=== PATIENT | male | born 2000 ===

== ENCOUNTER 2022-02-21 05:22 | Inpatient (IN) | payer OTHER ==
[2022-02-21] MEDS ORDERED: Ondansetron PF 4 MG/2 ML Vial ONE ×3 (05:36→10:11)
[2022-02-21 05:52] LABS: #Basophils 0.1 thou/uL (0.0-0.2); #Eosinphils 0.2 thou/uL (0.0-0.7); #Lymphocytes 5.2 thou/uL (1.20-3.40); #Monocytes 0.8 thou/uL (0.11-0.59); #Neutrophils 6.5 thou/uL (1.40-6.50); %Basophils 0.8 % (0.0-1.0); %Eosinophils 1.9 % (0.0-10.0); %Lymphocytes 40.3 % (21.0-51.0); %Monocytes 6.5 % (0.0-10.0); %Neutrophils 50.5 % (42.0-75.0); Hemoglobin 13.7 g/dL (14.0-18.0); Mean Corpuscular Hemoglobin 29.2 pg (27.0-31.0); Mean Corpuscular Volume 88.4 fL (78.0-98.0); Mean Platelet Volume 8.7 fL (7.4-10.4); Platelet Count 264 thou/uL (130-400); RBC Distribution Width 13.3 % (11.5-14.5); Red Blood Cell (RBC) Count 4.71 mill/uL (4.70-6.10); White Blood Cell (WBC) Count 12.8 thou/uL (4.8-10.8)
[2022-02-21 06:08] LABS: ALT (SGPT) 126 U/L (8-55); AST (SGOT) 129 U/L (5-34); Acetaminophen Less than 10.0 mcg/mL (10.0-30.0); Alcohol 116 mg/dL (Less than 10); Alkaline Phosphatase 51 U/L (40-110); Anion Gap 16 mmol/L (10-20); BUN (Urea Nitrogen) 10 mg/dL (8.9-20.6); Bilirubin, Total 0.9 mg/dL (0.2-1.2); Calc. Creatinine Clearance 0 mL/min (70-130); Calcium 8.6 mg/dL (7.8-10.44); Carbon Dioxide 18 mmol/L (22-29); Chloride 109 mmol/L (98-107); Globulin 2.3 g/dL (2.4-3.5); Glucose 179 mg/dL (70-105); Potassium 3.3 mmol/L (3.5-5.1); Protein, Total 6.3 g/dL (6.0-8.3); Salicylate Less than 8.0 mg/dL (15.0-30.0); Sodium 140 mmol/L (136-145)
[2022-02-21] MEDS ORDERED: Boostrix 0.5 ML (Tdap) VIAL ONE (06:11)
[2022-02-21] MEDS ORDERED: CEFAZOLIN 2 GM VIAL ONE (06:11)
[2022-02-21] MEDS ORDERED: Lidocaine 1% PF 5 ML VIAL ONE ×2 (06:46→10:11)
[2022-02-21] MEDS ORDERED: Dextrose 5% in Water 1,000 ML IV PRN (07:32)
[2022-02-21] MEDS ORDERED: Dextrose 50% Abboject 50 ML SYRINGE SLOW IVP PRN (07:32)
[2022-02-21] MEDS ORDERED: hydrALAZINE 20 MG/ML VIAL SLOW IVP PRN (07:32)
[2022-02-21 07:57] LABS: Bacteria/HPF None Seen HPF (None Seen); Bilirubin Negative (Negative); Blood, Urine 2+ (Negative); Clarity Clear (Clear); Glucose, Urine (Dipstick) 30 mg/dL (Negative); Ketone, Urine Negative (Negative); Leukocyte Negative Leu/uL (Negative); Nitrite Negative (Negative); Protein, Urine (Dipstick) Negative (Neg-Trace); RBC/HPF None Seen HPF (0-3); Specific Gravity, Urine 1.042 (1.002-1.036); Squamous Epithelial None Seen HPF (0-3); Urobilinogen Normal mg/dL (Less than 2)
[2022-02-21 08:02] LABS: Amphetamine Not Detected (NotDetected); Barbiturates Screen Not Detected (NotDetected); Benzodiazepine Screen Not Detected (NotDetected); Cocaine Metabolite Screen Not Detected (NotDetected); Methadone Not Detected (NotDetected); Methamphetamine Not Detected (NotDetected); Opiate Screen Not Detected (NotDetected); Oxycodone Screen Not Detected (NotDetected); Phencyclidine (PCP) Not Detected (NotDetected); THC/Cannabinoid Screen Detected (NotDetected); Tricyclic Screen Not Detected (NotDetected)
[2022-02-21 08:26] LABS: INR-International Normal Ratio 1.1; Prothrombin Time 14.5 sec (12.0-14.7)
[2022-02-21 08:27] LABS: PTT 26.6 sec (22.9-36.1)
[2022-02-21] MEDS ORDERED: Midazolam HCl 2 mg/2 ml Vial ONE (09:06)
[2022-02-21] MEDS ORDERED: fentaNYL Citrate/PF 100 MCG/2 ML SYRINGE ONE (09:07)
[2022-02-21] MEDS ORDERED: Lidocaine 2% Jelly 5 ML TUBE ONE (09:07)
[2022-02-21] MEDS ORDERED: AFRIN NASAL MIST 15 ML BOT ONE (09:15)
[2022-02-21] MEDS ORDERED: Lidocaine 1% w/Epinephrine 1:100K 20 ML VIAL ONE (09:44)
[2022-02-21] MEDS ORDERED: Bupivacaine 0.25% 10 ML VIAL ONE (09:44)
[2022-02-21] MEDS ORDERED: Bupivacaine PF 0.5% 30 ML VIAL ONE (09:44)
[2022-02-21] MEDS ORDERED: Chlorhexidine Gluconate 15 ML UDCUP SSP ONE (09:55)
[2022-02-21] MEDS ORDERED: Clindamycin/D5W 900 mg/50 ml Premix Bag ONE (10:04)
[2022-02-21] MEDS ORDERED: Dexamethasone 20 MG/5 ML VIAL ONE (10:11)
[2022-02-21] MEDS ORDERED: PHENYLEPHRINE-NS 100 MCG/ML 10 ML SYRINGE ONE ×2 (10:11→11:27)
[2022-02-21] MEDS ORDERED: Rocuronium Bromide 10 MG/ML (10ML VIAL) ONE (10:11)
[2022-02-21] MEDS ORDERED: PROPOFOL 200 MG/20 ML VIAL ONE (10:11)
[2022-02-21] MEDS ORDERED: Glycopyrrolate 0.2 MG/ML 5 ML SYRINGE ONE (10:11)
[2022-02-21] MEDS ORDERED: Iopamidol 370 76% 100 ML VIAL ONE (10:34)
[2022-02-21] MEDS ORDERED: Promethazine HCl 25 MG/ML VIAL ONE (11:03)
[2022-02-21] MEDS ORDERED: Hydrocortisone 1% Cream 30 GM TUBE ONE (11:17)
[2022-02-21] MEDS ORDERED: SUGAMMADEX SODIUM 200 MG/2 ML VIAL ONE (11:27)
[2022-02-21] MEDS ORDERED: Phenylephrine 10 MG/ML VIAL ONE (11:27)
[2022-02-21] MEDS ORDERED: Meperidine HCl/PF 25 MG/ML VIAL ONE (12:10)
[2022-02-21] MEDS: Sodium Chloride 0.9% 1,000 ML IV SCH ×2 (15:57→16:08)
[2022-02-21] MEDS: Dexamethasone 4 mg/ml Vial SLOW IVP SCH ×2 (15:57→16:04)
[2022-02-21] MEDS: Acetaminophen 650 MG/20.3 ML UDCUP PO SCH ×3 (15:57→21:00)
[2022-02-21] MEDS: Famotidine/PF 20 mg/2ml Vial SLOW IVP SCH ×2 (15:57→19:56)
[2022-02-21] MEDS: Morphine 2 MG/ML VIAL SLOW IVP PRN ×3 (16:11→21:48)
[2022-02-21] MEDS: Ondansetron PF 4 MG/2 ML Vial IVP PRN ×2 (16:19→21:50)
[2022-02-21 16:28] VITALS: BMI 23.6
[2022-02-21] MEDS: Clindamycin/D5W 900 MG in Premix Bag 1 BAG IVPB SCH (17:45)
[2022-02-21] MEDS ORDERED: Potassium Phosphate 30 MMOL in Sodium Chloride 0.9% 250 ML 250 ML IVPB SCH (18:00)
[2022-02-21] MEDS: Acetaminophen W/ Codeine 5 ML UDCUP PO PRN (18:02)
[2022-02-21] MEDS: Ciprofloxacin HCL/Dexameth Otic Drops 7.5 ml Bottle L EAR SCH (20:01)
[2022-02-21] MEDS ORDERED: Promethazine HCl 25 MG/ML VIAL IM PRN (20:06)
[2022-02-21] MEDS: Scopolamine 1.5 mg/72 hour Patch TD SCH (21:01)
[2022-02-21] MEDS: Chlorhexidine Gluconate 15 ML UDCUP SSP SCH (21:02)
[2022-02-22] MEDS: Acetaminophen W/ Codeine 5 ML UDCUP PO PRN ×3 (00:16→11:00)
[2022-02-22] MEDS: Morphine 2 MG/ML VIAL SLOW IVP PRN ×2 (00:16→04:16)
[2022-02-22] MEDS: Dexamethasone 4 mg/ml Vial SLOW IVP SCH (01:36)
[2022-02-22] MEDS: Acetaminophen 650 MG/20.3 ML UDCUP PO SCH ×4 (03:19→20:16)
[2022-02-22] MEDS: Clindamycin/D5W 900 MG in Premix Bag 1 BAG IVPB SCH (03:21)
[2022-02-22] MEDS: Sodium Chloride 0.9% 1,000 ML IV SCH (03:23)
[2022-02-22 05:54] LABS: INR-International Normal Ratio 1.2; Prothrombin Time 14.9 sec (12.0-14.7)
[2022-02-22 06:14] LABS: Anion Gap 11 mmol/L (10-20); BUN (Urea Nitrogen) 8 mg/dL (8.9-20.6); Calc. Creatinine Clearance 162 mL/min (70-130); Calcium 8.5 mg/dL (7.8-10.44); Carbon Dioxide 27 mmol/L (22-29); Chloride 103 mmol/L (98-107); Glucose 162 mg/dL (70-105); Magnesium 1.6 mg/dL (1.6-2.6); Potassium 3.5 mmol/L (3.5-5.1); Sodium 137 mmol/L (136-145)
[2022-02-22 06:32] LABS: Band 17 % (5-11); Hemoglobin 12.3 g/dL (14.0-18.0); Lymphocytes 3 % (21-51); MDiff Complete? YES; Mean Corpuscular HGB CONC 33.2 g/dL (32.0-36.0); Mean Corpuscular Hemoglobin 29.6 pg (27.0-31.0); Mean Corpuscular Volume 89.1 fL (78.0-98.0); Mean Platelet Volume 9.2 fL (7.4-10.4); Monocytes 4 % (0-10); Neutrophil 76 % (42-75); Platelet Count 194 thou/uL (130-400); Platelet Morphology Comment Appears Adequate; RBC Distribution Width 13.5 % (11.5-14.5); RBC Morphology Normal; Red Blood Cell (RBC) Count 4.17 mill/uL (4.70-6.10); White Blood Cell (WBC) Count 22.9 thou/uL (4.8-10.8)
[2022-02-22 06:59] LABS: Phosphorus 3.3 mg/dL (2.3-4.7)
[2022-02-22] MEDS ORDERED: Potassium Chloride 20 MEQ TAB PO SCH (07:45)
[2022-02-22] MEDS ORDERED: Magnesium 2 GM/50 ML(in water) 2 GM in Premix Bag 1 BAG IVPB SCH (07:45)
[2022-02-22] MEDS ORDERED: PHOS-NAK 1 PKT PACK PO SCH (08:00)
[2022-02-22] MEDS: Chlorhexidine Gluconate 15 ML UDCUP SSP SCH ×2 (08:49→20:16)
[2022-02-22] MEDS: Ciprofloxacin HCL/Dexameth Otic Drops 7.5 ml Bottle L EAR SCH ×2 (08:51→20:14)
[2022-02-22] MEDS: Famotidine/PF 20 mg/2ml Vial SLOW IVP SCH ×2 (08:51→20:14)
[2022-02-22] MEDS: Escitalopram Oxalate 10 mg Tablet PO SCH (08:54)
[2022-02-22] MEDS: Gabapentin 300 MG CAP PO SCH ×2 (14:45→20:14)
[2022-02-22] MEDS: Morphine 4 MG/ML VIAL SLOW IVP PRN ×2 (16:13→21:21)
[2022-02-23] MEDS: Acetaminophen 650 MG/20.3 ML UDCUP PO SCH ×4 (03:02→20:36)
[2022-02-23] MEDS: Ondansetron PF 4 MG/2 ML Vial IVP PRN (04:07)
[2022-02-23 05:40] LABS: #Lymphocytes 1.7 thou/uL (1.20-3.40); #Neutrophils 11.3 thou/uL (1.40-6.50); %Basophils 0.2 % (0.0-1.0); %Eosinophils 0.1 % (0.0-10.0); %Lymphocytes 12.1 % (21.0-51.0); %Neutrophils 80.6 % (42.0-75.0); Hemoglobin 11.8 g/dL (14.0-18.0); Mean Corpuscular HGB CONC 33.1 g/dL (32.0-36.0); Mean Corpuscular Volume 87.6 fL (78.0-98.0); Platelet Count 188 thou/uL (130-400); RBC Distribution Width 13.9 % (11.5-14.5); Red Blood Cell (RBC) Count 4.06 mill/uL (4.70-6.10); White Blood Cell (WBC) Count 14.1 thou/uL (4.8-10.8)
[2022-02-23 06:14] LABS: Anion Gap 10 mmol/L (10-20); BUN (Urea Nitrogen) 9 mg/dL (8.9-20.6); Calc. Creatinine Clearance 167 mL/min (70-130); Calcium 8.8 mg/dL (7.8-10.44); Carbon Dioxide 23 mmol/L (22-29); Chloride 108 mmol/L (98-107); Glucose 113 mg/dL (70-105); Phosphorus 2.5 mg/dL (2.3-4.7); Potassium 4.4 mmol/L (3.5-5.1); Sodium 137 mmol/L (136-145)
[2022-02-23] MEDS: Acetaminophen W/ Codeine 5 ML UDCUP PO PRN (06:16)
[2022-02-23] MEDS: Ciprofloxacin HCL/Dexameth Otic Drops 7.5 ml Bottle L EAR SCH ×2 (08:27→20:38)
[2022-02-23] MEDS: Gabapentin 300 MG CAP PO SCH (08:28)
[2022-02-23] MEDS: Famotidine/PF 20 mg/2ml Vial SLOW IVP SCH ×2 (08:28→20:37)
[2022-02-23] MEDS: Escitalopram Oxalate 10 mg Tablet PO SCH (08:28)
[2022-02-23] MEDS: Chlorhexidine Gluconate 15 ML UDCUP SSP SCH ×2 (08:28→20:36)
[2022-02-23] MEDS ORDERED: Ibuprofen 600 MG TAB PO SCH (14:00)
[2022-02-23] MEDS: Ibuprofen 200 MG TAB PO SCH ×2 (14:08→20:37)
[2022-02-23] MEDS: Fluticasone Propionate Nasal Spray 16 gm Bottle NASAL PRN (16:40)
[2022-02-24] MEDS: Acetaminophen 650 MG/20.3 ML UDCUP PO SCH ×4 (02:48→21:11)
[2022-02-24] MEDS: Ibuprofen 200 MG TAB PO SCH ×3 (05:26→21:12)
[2022-02-24] MEDS: Escitalopram Oxalate 10 mg Tablet PO SCH (09:41)
[2022-02-24] MEDS: Fluticasone Propionate Nasal Spray 16 gm Bottle NASAL PRN (09:41)
[2022-02-24] MEDS: Famotidine/PF 20 mg/2ml Vial SLOW IVP SCH ×2 (09:41→21:19)
[2022-02-24] MEDS: Chlorhexidine Gluconate 15 ML UDCUP SSP SCH ×2 (09:41→21:16)
[2022-02-24] MEDS: Ciprofloxacin HCL/Dexameth Otic Drops 7.5 ml Bottle L EAR SCH ×2 (09:42→21:17)
[2022-02-24] MEDS: Senokot S 8.6-50 MG TAB PO SCH ×2 (09:42→21:12)
[2022-02-24] MEDS: Polyethylene Glycol 3350 17 GM Packet PO SCH (09:42)
[2022-02-24] MEDS: Scopolamine 1.5 mg/72 hour Patch TD SCH (21:17)
[2022-02-25] MEDS: Acetaminophen 650 MG/20.3 ML UDCUP PO SCH ×4 (01:53→21:24)
[2022-02-25] MEDS: Ibuprofen 200 MG TAB PO SCH ×3 (05:15→21:23)
[2022-02-25] MEDS: Chlorhexidine Gluconate 15 ML UDCUP SSP SCH ×2 (07:58→21:24)
[2022-02-25] MEDS: Ciprofloxacin HCL/Dexameth Otic Drops 7.5 ml Bottle L EAR SCH ×2 (07:58→21:24)
[2022-02-25] MEDS: Polyethylene Glycol 3350 17 GM Packet PO SCH (07:59)
[2022-02-25] MEDS: Senokot S 8.6-50 MG TAB PO SCH ×2 (07:59→21:25)
[2022-02-25] MEDS: Escitalopram Oxalate 10 mg Tablet PO SCH (07:59)
[2022-02-25] MEDS: Famotidine 20 MG TAB PO SCH ×2 (10:36→21:23)
[2022-02-26] MEDS: Acetaminophen 650 MG/20.3 ML UDCUP PO SCH ×4 (02:09→20:45)
[2022-02-26] MEDS: Ibuprofen 200 MG TAB PO SCH ×3 (05:28→20:44)
[2022-02-26] MEDS ORDERED: Enoxaparin Sodium 40 MG/0.4 ML SYRINGE SC SCH (09:00)
[2022-02-26] MEDS: Chlorhexidine Gluconate 15 ML UDCUP SSP SCH ×2 (09:35→20:45)
[2022-02-26] MEDS: Ciprofloxacin HCL/Dexameth Otic Drops 7.5 ml Bottle L EAR SCH ×2 (09:36→20:45)
[2022-02-26] MEDS: Famotidine 20 MG TAB PO SCH ×2 (09:37→20:45)
[2022-02-26] MEDS: Senokot S 8.6-50 MG TAB PO SCH ×2 (09:38→20:46)
[2022-02-26] MEDS: Escitalopram Oxalate 10 mg Tablet PO SCH (09:39)
[2022-02-26] MEDS: Polyethylene Glycol 3350 17 GM Packet PO SCH (09:41)
[2022-02-27] MEDS: Acetaminophen 650 MG/20.3 ML UDCUP PO SCH ×4 (01:55→20:56)
[2022-02-27] MEDS: Ibuprofen 200 MG TAB PO SCH ×3 (05:16→20:59)
[2022-02-27] MEDS ORDERED: Loratadine 10 MG TAB PO SCH (09:00)
[2022-02-27] MEDS: Chlorhexidine Gluconate 15 ML UDCUP SSP SCH ×2 (09:49→20:56)
[2022-02-27] MEDS: Famotidine 20 MG TAB PO SCH ×2 (09:50→21:00)
[2022-02-27] MEDS: Loratadine/Pseudoephedrine 10/240 mg Tablet PO SCH (09:50)
[2022-02-27] MEDS: Escitalopram Oxalate 10 mg Tablet PO SCH (09:50)
[2022-02-27] MEDS: Senokot S 8.6-50 MG TAB PO SCH ×2 (09:51→21:00)
[2022-02-27] MEDS: Ciprofloxacin HCL/Dexameth Otic Drops 7.5 ml Bottle L EAR SCH ×2 (09:51→20:59)
[2022-02-27] MEDS: Polyethylene Glycol 3350 17 GM Packet PO SCH (09:51)
[2022-02-27] MEDS: Scopolamine 1.5 mg/72 hour Patch TD SCH (20:56)
[2022-02-27] MEDS ORDERED: Melatonin 3 MG TAB PO SCH (21:00)
[2022-02-28] MEDS: Acetaminophen 650 MG/20.3 ML UDCUP PO SCH ×3 (03:00→14:04)
[2022-02-28] MEDS: Ibuprofen 200 MG TAB PO SCH ×2 (06:45→14:02)
[2022-02-28] MEDS: Loratadine/Pseudoephedrine 10/240 mg Tablet PO SCH (08:43)
[2022-02-28] MEDS: Famotidine 20 MG TAB PO SCH (08:43)
[2022-02-28] MEDS: Polyethylene Glycol 3350 17 GM Packet PO SCH (08:44)
[2022-02-28] MEDS: Chlorhexidine Gluconate 15 ML UDCUP SSP SCH (08:44)
[2022-02-28] MEDS: Escitalopram Oxalate 10 mg Tablet PO SCH (08:44)
[2022-02-28] MEDS: Senokot S 8.6-50 MG TAB PO SCH (08:44)
[2022-02-28 11:57] VITALS: BP 114/69; TEMP 97.3
== END 2022-02-28 15:25 | DRG 141 ==
LOC: ERS 05:22 → SDC 09:11 → SURG A 09:12
PROVIDERS: ADMIT Surgery; ATTEND Surgery
PROC: 0NSV04Z Reposition Left Mandible with Internal Fixation Device, Open Approach (ICD-10-PCS; principal; 2022-02-21)
PROC: 0NST04Z Reposition Right Mandible with Internal Fixation Device, Open Approach (ICD-10-PCS; 2022-02-21)
PROC: 0CTX0Z0 Resection of Lower Tooth, Single, Open Approach (ICD-10-PCS; 2022-02-21)
PROC: 0HQ1XZZ Repair Face Skin, External Approach (ICD-10-PCS; 2022-02-21)
PROC: 0HQFXZZ Repair Right Hand Skin, External Approach (ICD-10-PCS; 2022-02-21)
PROC: 3E0G76Z Introduction of Nutritional Substance into Upper GI, Via Natural or Artificial Opening (ICD-10-PCS; 2022-02-21)
DX: S02.612A Fracture of condylar process of left mandible, initial encounter for closed fracture (principal); S02.32XA Fracture of orbital floor, left side, initial encounter for closed fracture; S02.19XA Other fracture of base of skull, initial encounter for closed fracture; Z23 Encounter for immunization; F41.9 Anxiety disorder, unspecified; F32.A Depression, unspecified; S01.81XA Laceration without foreign body of other part of head, initial encounter; S61.411A Laceration without foreign body of right hand, initial encounter; F10.129 Alcohol abuse with intoxication, unspecified; Y90.5 Blood alcohol level of 100-119 mg/100 ml; S01.511A Laceration without foreign body of lip, initial encounter; S02.40DA Maxillary fracture, left side, initial encounter for closed fracture; S02.611A Fracture of condylar process of right mandible, initial encounter for closed fracture; S02.5XXA Fracture of tooth (traumatic), initial encounter for closed fracture; Y92.89 Other specified places as the place of occurrence of the external cause; Z88.0 Allergy status to penicillin; Z90.89 Acquired absence of other organs; Z79.899 Other long term (current) drug therapy
CPT/HCPCS: 36415; 51701; 70450; 70486; 70498; 71260; 72125; 74177; 80048; 80053; 80306; 80307; 81003; 81015; 83690; 83735; 84100; 85025; 85610; 85730; 86850; 86900; 86901; 90471; 90715; 96365; 96375; 96376; C1713; J1100; J1650; J2175; J2250; J2270; J2370; J2405; J2550; J2704; J3475; J3490; J7050; Q9967; S0020; S0028